=== PATIENT | female | born 1960 | race Caucasian/White ===

== ENCOUNTER 2021-06-25 11:19 | Inpatient (IN) | payer BC ==
[~2021-06-25] VITALS: Ht 154.9 cm; Wt 91.9 kg
[~2021-06-25 11:19] MED LIST: MECL-75 PO
--- NOTE | 2021-06-25 11:37 | PHYS DOC ---
Past History Past Medical History: No Pertinent History (RIK WELLER APRN) Past Surgical History: Hysterectomy, Knee Replacement (RIK WELLER APRN) Alcohol Use: Occasionally Drug Use: None (RIK WELLER APRN) General Adult EDM: Chief Complaint: SHORTNESS OF BREATH HPI: HPI: Patient is a 60-year-old female being seen in the ER for pneumonia. She states that she was at Dr. Villalpando's office just prior to ER arrival and had a chest x-ray performed and was told that she had bilateral lower lobe pneumonia. Dr. Nice contacted nursing staff and reported that he was sending her in to be admitted. Patient is reporting a cough and shortness of breath for 2 months. She has a history of COPD. She does not wear oxygen at home. Her room air oxygen saturation is 92%. She is not tachycardic. Patient denies any fevers, chest pain, sick exposures or recent Covid testing. (RIK WELLER APRN) Review of Systems: Review of Systems: 14 body systems of the review of systems have been reviewed. See HPI for pertinent positive and negative responses, otherwise all other systems are negative, nonpertinent or noncontributory (RIK WELLER APRN) Current Medications: Current Meds: Current Medications Medications (Trade) Dose Ordered Sig/Sharlene Start Time Stop Time Status Last Admin Dose Admin Azithromycin 500 mg/Sodium Chloride 250 ml @ 250 mls/hr 1X ONCE 06/25/21 11:45 06/25/21 12:44 UNV Ceftriaxone Sodium 1 gm/ Sodium Chloride 50 ml @ 100 mls/hr 1X ONCE 06/25/21 11:45 06/25/21 12:14 UNV (RIK WELLER APRN) Allergies: Allergies: Allergies Coded Allergies Type Severity Reaction Last Updated Verified acetaminophen Allergy Intermediate hives 04/13/15 No codeine Allergy Intermediate hives 04/13/15 No oxycodone Allergy Intermediate hives 04/13/15 No (RIK WELLER APRN) Physical Exam: PE: Constitutional: Well developed, well nourished, no acute distress, non-toxic appearance. [] HENT: Normocephalic, atraumatic, bilateral external ears normal, oropharynx moist, no oral exudates, nose normal. [] Eyes: PERRL, EOMI, conjunctiva normal, no discharge. [] Neck: Normal range of motion, no stridor Cardiovascular:Heart rate regular rhythm, no murmur [] Lungs & Thorax: Bilateral breath sounds clear to auscultation [] Abdomen: Bowel sounds normal, soft, no tenderness, no masses, no pulsatile masses. [] Skin: Warm, dry, no erythema, no rash. [] Back: Range of motion Extremities: No tenderness, no cyanosis, no clubbing, ROM intact, no edema. [] Neurologic: Alert and oriented X 3, normal motor function, normal sensory function, no focal deficits noted. [] Psychologic: Affect normal, judgement normal, mood normal. [] (RIK WELLER APRN) Current Patient Data: Labs: Laboratory Tests Test 06/25/21 12:00 White Blood Count 9.4 x10^3/uL Red Blood Count 3.90 x10^6/uL Hemoglobin 11.9 g/dL Hematocrit 37.0 % Mean Corpuscular Volume 95 fL Mean Corpuscular Hemoglobin 31 pg Mean Corpuscular Hemoglobin Concent 32 g/dL Red Cell Distribution Width 13.3 % Platelet Count 379 x10^3/uL Neutrophils (%) (Auto) 75 % Lymphocytes (%) (Auto) 9 % Monocytes (%) (Auto) 12 % Eosinophils (%) (Auto) 3 % Basophils (%) (Auto) 1 % Neutrophils # (Auto) 7.1 x10^3uL Lymphocytes # (Auto) 0.9 x10^3/uL Monocytes # (Auto) 1.2 x10^3/uL Eosinophils # (Auto) 0.2 x10^3/uL Basophils # (Auto) 0.1 x10^3/uL Sodium Level 139 mmol/L Potassium Level 4.4 mmol/L Chloride Level 100 mmol/L Carbon Dioxide Level 29 mmol/L Anion Gap 10 Blood Urea Nitrogen 17 mg/dL Creatinine 0.5 mg/dL Estimated GFR (Cockcroft-Gault) 125.0 BUN/Creatinine Ratio 34 Glucose Level 92 mg/dL Lactic Acid Level 1.0 mmol/L Calcium Level 8.9 mg/dL Total Bilirubin 0.2 mg/dL Aspartate Amino Transf (AST/SGOT) 16 U/L Alanine Aminotransferase (ALT/SGPT) 17 U/L Alkaline Phosphatase 121 U/L Troponin I Quantitative < 0.017 ng/mL Total Protein 6.4 g/dL Albumin 2.8 g/dL Albumin/Globulin Ratio 0.8 SARS-CoV-2 Antigen (Rapid) Negative Current Medications Medications (Trade) Dose Ordered Sig/Sharlene Route PRN Reason Start Time Stop Time Status Last Admin Dose Admin Ceftriaxone Sodium 1 gm/ Sodium Chloride 50 ml @ 100 mls/hr 1X ONCE IV 06/25/21 11:45 06/25/21 11:34 DC Azithromycin 500 mg/Sodium Chloride 250 ml @ 250 mls/hr 1X ONCE IV 06/25/21 11:45 06/25/21 11:34 DC Ceftriaxone Sodium 1 gm/ Sodium Chloride 50 ml @ 100 mls/hr 1X ONCE IV 06/25/21 13:00 06/25/21 13:29 Azithromycin 500 mg/Sodium Chloride 250 ml @ 250 mls/hr 1X ONCE IV 06/25/21 13:00 06/25/21 13:59 (RIK WELLER APRN) EKG: EKG: EKG performed by ER staff at 1137 shows sinus rhythm with a rate of 77, no STEMI read by Dr. Minor at 1146. [] (RIK WELLER APRN) Radiology/Procedures: Radiology/Procedures: []PROCEDURE: CHEST AP ONLY XR CHEST 1V CLINICAL INDICATIONS: Reason: Shortness of air cough / Spl. Instructions: / History: COMPARISON: April 13, 2015. Findings: There is a consolidative infiltrate within the left mid and lower lung zone. Right lung field is clear. No pneumothorax is seen. No pleural effusion is evident. Left axillary node dissection is apparent. The heart size, pulmonary vasculature, mediastinum and both berenice are unremarkable. IMPRESSION: Left lung consolidative infiltrate. Electronically signed by: Walter Madison MD (06/25/2021 12:14 PM) [id number] DICTATED AND SIGNED BY: WALTER MADISON MD DATE: 06/25/21 1213 CC: AMOL CHOUDHARY MD; RIK WELLER APRN ~MTH0 0 (RIK WELLER APRN) Heart Score: C/O Chest Pain: No Risk Factors: Risk Factors: DM, Current or recent (<one month) smoker, HTN, HLP, family history of CAD, obesity. Risk Scores: Score 0 - 3: 2.5% MACE over next 6 weeks - Discharge Home Score 4 - 6: 20.3% MACE over next 6 weeks - Admit for Clinical Observation Score 7 - 10: 72.7% MACE over next 6 weeks - Early Invasive Strategies (RIK WELLER APRN) Course & Med Decision Making: Course & Med Decision Making Pertinent Labs and Imaging studies reviewed. (See chart for details) [] Patient is a 60-year-old female being seen in the ER for cough and shortness of breath x2 months. Patient to be admitted by Dr. Villalpando symptoms are bilateral lower lobe pneumonia. Work-up in the ER consisted of blood work, chest x-ray. Patient be treated with antibiotics. Patient's blood work was unremarkable. She was noted to have a left lower lobe pneumonia. This will be treated with an antibiotic in the ER. Patient's vital signs are stable at this time. I spoke to Dr. Villalpando who agreed to admit the patient under his services. I discussed patient's findings with her as well as treatment plan and she is agreeable at this time. Care transferred at this time 1320. (RIK WELLER APRN) Course & Med Decision Making I was the Attending physician on the above date of service of this patient. This patient was evaluated, examined, treated, and dispositioned from the emergency department by the mid-level practitioner. I reviewed case and agreed to plan of care and need for admission as advised by outpatient primary care physician Electronically signed, Michael Minor DO (MICHAEL MINOR DO) Tyesha Disclaimer: Tyesha Disclaimer: This electronic medical record was generated, in whole or in part, using a voice recognition dictation system. (RIK WELLER APRN) Departure Departure: Impression: Primary Impression: Pneumonia Qualified Codes: J18.9 - Pneumonia, unspecified organism Disposition: ADMITTED INPATIENT Admitting Physician: Amol Choudhary (RIK WELLER APRN) Referrals: AMOL CHOUDHARY MD (PCP) Scripts Cefdinir (CEFDINIR) 300 Mg Capsule 1 CAP PO BID for infection, #10 CAP Prov: AMOL CHOUDHARY MD 06/28/21 Lactobacillus Rhamnosus Gg (CULTURELLE) 1 Each Cap.sprink 1 CAP PO BID for probiotic for 60 Days, #120 CAP Prov: AMOL CHUODHARY MD 06/28/21 RIK WELLER APRN Jun 25, 2021 11:37 MICHAEL MINOR DO Jun 30, 2021 17:51
[2021-06-25] MEDS ORDERED: AZITHROMYCIN 500 MG in IV NORMAL SALINE 250ML 250 ML IV ONE ×2 (11:45→13:00)
--- NOTE | 2021-06-25 12:17 | RAD ---
XR CHEST 1V CLINICAL INDICATIONS: Reason: Shortness of air cough / Spl. Instructions: / History: COMPARISON: April 13, 2015. Findings: There is a consolidative infiltrate within the left mid and lower lung zone. Right lung fie ld is clear. No pneumothorax is seen. No pleural effusion is evident. Left axillary node dissection i s apparent. The heart size, pulmonary vasculature, mediastinum and both berenice are unremarkable. IMPRESSION: Left lung consolidative infiltrate. Electronically signed by: Juan Carlos Madison MD (06/25/2021 12:14 PM) [id number]
--- NOTE | 2021-06-25 12:18 | EKG ---
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
[2021-06-25 12:37] LABS: BASO # 0.1 x10^3/uL (0.0-0.2); BASO % 1 % (0-3); EOS # 0.2 x10^3/uL (0.0-0.7); EOS % 3 % (0-3); HEMOGLOBIN 11.9 g/dL (12.0-15.5); LYMPH # 0.9 x10^3/uL (1.0-4.8); LYMPH % 9 % (24-48); MEAN CORPUSCULAR HEMOGLOBIN 31 pg (25-35); MEAN CORPUSCULAR HGB CONC 32 g/dL (31-37); MEAN CORPUSCULAR VOLUME 95 fL (79-100); MONO # 1.2 x10^3/uL (0.0-1.1); MONO % 12 % (0-9); NEUT # 7.1 x10^3uL (1.8-7.7); NEUT % 75 % (31-73); PLATELET COUNT 379 x10^3/uL (140-400); RED CELL DISTRIBUTION WIDTH 13.3 % (11.5-14.5); WHITE BLOOD COUNT 9.4 x10^3/uL (4.0-11.0)
[2021-06-25 12:39] LABS: CALCIUM 8.9 mg/dL (8.5-10.1); CREATININE 0.5 mg/dL (0.6-1.0); POTASSIUM 4.4 mmol/L (3.5-5.1)
[2021-06-25 12:46] LABS: ALBUMIN 2.8 g/dL (3.4-5.0); ALBUMIN/GLOBULIN RATIO 0.8 (1.0-1.7); TOTAL BILIRUBIN 0.2 mg/dL (0.2-1.0); TOTAL PROTEIN 6.4 g/dL (6.4-8.2)
[2021-06-25] MEDS ORDERED: IV NORMAL SALINE 250ML 250 ML ONE (14:06)
[2021-06-25] MEDS ORDERED: IV NORMAL SALINE 50ML 50 ML ONE (14:07)
[2021-06-25] MEDS ORDERED: AZITHROMYCIN 500 MG VIAL. IV ONE (14:07)
[2021-06-25] MEDS ORDERED: cefTRIAXone SODIUM 1 GM VIAL ONE (14:07)
[2021-06-25 23:09] VITALS: BP 121/80
--- NOTE | 2021-06-25 23:10 | NUR ---
The patient, DEANNE BIGGS, 60 y/o, F admitted by POLLY CHOUDHARY MD, was given written information regarding hospital policies, unit procedures and contact persons. Valuables were checked and vitals documented. Pt is A&Ox4 able to ambulate to toilet and express own concerns. On room air pt sats at 88 pt is on 2LNC. Pt is currently resting in bed. Will continue to monitor.
[2021-06-26] MEDS ORDERED: GABA-585 PO (04:41)
[2021-06-26] MEDS ORDERED: MECL-75 PO (04:41)
[2021-06-26] MEDS ORDERED: FLUO40CA2 PO (04:41)
[2021-06-26] MEDS ORDERED: ATOR40TA59 PO (04:41)
[2021-06-26] MEDS ORDERED: LETR2.5T2 PO (04:49)
--- NOTE | 2021-06-26 04:52 | NUR ---
Pt is in a clinical trial through . She take an unknown medication daily. Her will bring the med to the hospital. Once here it will need to be added to med rec.
[2021-06-26 05:41] VITALS: BP 130/79
[2021-06-26 06:02] LABS: BASO % 1 % (0-3); EOS # 0.3 x10^3/uL (0.0-0.7); EOS % 4 % (0-3); HEMATOCRIT 32.6 % (36.0-47.0); HEMOGLOBIN 10.8 g/dL (12.0-15.5); LYMPH # 0.9 x10^3/uL (1.0-4.8); LYMPH % 13 % (24-48); MEAN CORPUSCULAR HEMOGLOBIN 32 pg (25-35); MEAN CORPUSCULAR HGB CONC 33 g/dL (31-37); MEAN CORPUSCULAR VOLUME 95 fL (79-100); MONO % 15 % (0-9); NEUT # 4.6 x10^3uL (1.8-7.7); NEUT % 68 % (31-73); PLATELET COUNT 335 x10^3/uL (140-400); RED BLOOD COUNT 3.43 x10^6/uL (3.50-5.40); RED CELL DISTRIBUTION WIDTH 13.4 % (11.5-14.5); WHITE BLOOD COUNT 6.8 x10^3/uL (4.0-11.0)
[2021-06-26 06:23] LABS: ALBUMIN 2.3 g/dL (3.4-5.0); ALBUMIN/GLOBULIN RATIO 0.6 (1.0-1.7); CALCIUM 8.5 mg/dL (8.5-10.1); CREATININE 0.5 mg/dL (0.6-1.0); POTASSIUM 3.6 mmol/L (3.5-5.1); TOTAL BILIRUBIN 0.3 mg/dL (0.2-1.0); TOTAL PROTEIN 6.2 g/dL (6.4-8.2)
[2021-06-26] MEDS ORDERED: PIP/TAZO PER PHARMACY MC PRN (06:30)
[2021-06-26] MEDS ORDERED: levoFLOXacin PER PHARMACY 1 EACH. MC PRN (06:30)
[2021-06-26] MEDS: IPRATRPIUM/ALBUTEROL 0.5/2.5MG 3 ML NEBU. NEB SCH ×4 (08:00→22:10)
[2021-06-26] MEDS: ATORVASTATIN CALCIUM 20 MG TABLET PO SCH (08:45)
[2021-06-26] MEDS: MECLIZINE 12.5 MG TABLET. PO SCH (08:45)
[2021-06-26] MEDS: GABAPENTIN 100 MG CAPSULE. PO SCH (08:45)
[2021-06-26] MEDS: NON FORMULARY ITEM (Letrozole (Femara) 1 TAB) PO SCH (09:00)
[2021-06-26] MEDS ORDERED: FLU VACC QUAD 21-22 (6MOS+) PF 0.5 ML SYRINGE. VAX IM ONE (09:00)
--- NOTE | 2021-06-26 09:38 | NUR ---
SPOKE WITH PHARMACY ABOUT GETTING THE FLU SHOT WHILE ON HER HORMONE REPLACEMENT CHEMO. PHARMACY SAID IT WOULD BE OK TO GIVE. PT ALSO STATES THAT HER ONCOLOGY DOCTOR WANTS HER TO GET HER FLU SHOT.
[2021-06-26 10:30] VITALS: BP 115/77
[2021-06-26] MEDS: PIPERACILLIN/TAZOBACTAM 3.375 GM in IV NORMAL SALINE 50ML 50 ML IV SCH ×3 (12:03→23:57)
--- NOTE | 2021-06-26 14:01 | PN ---
SUBJECTIVE: A 60-year-old female in with a left lower lobe pneumonia that has been attempt to be treated as an outpatient for 3 weeks by other physicians and has progressively gotten worse. She has a history of breast cancer and is on medications for her breast cancer. The patient was sent through the Emergency Room per protocol. Her oxygen saturation did drop down into the upper 80s and the patient has been having chilling during the day. The patient's C-reactive protein is 103 and severe protein malnutrition. COVID negative. OBJECTIVE: VITAL SIGNS: The patient's vital signs this morning blood pressure 122/80, respiratory rate 20, pulse 70, afebrile and 95 on room air. GENERAL: The patient is alert and oriented. LUNGS: Diminished primarily in the left lower lung base. Marked decrease in breath sounds. CARDIOVASCULAR: Regular sinus rhythm. ABDOMEN: Soft, nontender. NEUROLOGIC: Intact. IMPRESSION: Left lower lobe community-acquired pneumonia, on immunosuppressive therapy for her breast cancer, severe protein malnutrition. PLAN: The patient continued to be monitored carefully, make further evaluation on her with IV antibiotic therapy and get CT scan of the chest. CARLENE DR: Maya TID: [id number]
--- NOTE | 2021-06-26 14:59 | RAD ---
EXAM: CT Chest without IV contrast CLINICAL HISTORY: Reason: pneumonia / Spl. Instructions: LLL mass brteast cancer / History: COMPARISON: None. TECHNIQUE: CT of the chest without intravenous contrast. Axial, coronal and sagittal reformatted imag es were generated. ---PQRS compliance statement - One or more of the following individualized dose reduction techniques were utilized for this study: 1. Automated exposure control 2. Adjustment of the mA and/or kV according to patient size 3. Use of iterative reconstruction technique--- FINDINGS: Lack of intravenous contrast limits evaluation of solid organs, vasculature, and lymph nodes. Chest: Changes of bilateral mastectomy and bilateral axillary surgical clips are seen. Heart is not enlarged . Coronary calcifications are seen. No pericardial effusion. No pleural effusion or pneumothorax. Wit hin the constraints of this noncontrast examination, no definite mediastinal or hilar lymphadenopathy . No axillary lymphadenopathy. Diffuse parenchymal airspace opacities in the left lower lobe and lingula likely consolidative proces s such as pneumonia with regions of air bronchograms. Visualized Upper abdomen: Unremarkable Bones: No aggressive osseous lesion. IMPRESSION: Diffuse parenchymal opacities in the left lung likely consolidative process such as pneumonia. Imagin g follow-up to resolution is recommended as underlying mass or metastatic focus would be obscured by the parenchymal opacities. Electronically signed by: Jose Thompson MD (06/26/2021 2:56 PM) NAKIA
[2021-06-26 15:10] VITALS: BP 101/67
--- NOTE | 2021-06-26 18:07 | NUR ---
PT STATED THAT SHE COULD GO WITHOUT HER CHEMO MEDS AND DID NOT WANT HER TO BRING THEM UP. PT HAD A GOOD DAY AND HAD A DIFFERENT IV PLACED. PT VERY PLEASANT AND DID NOT COMPLAIN OF PAIN.
[2021-06-26 19:24] VITALS: BP 96/68
[2021-06-26 23:01] VITALS: BP 102/69
[2021-06-27] MEDS: IPRATRPIUM/ALBUTEROL 0.5/2.5MG 3 ML NEBU. NEB SCH ×4 (05:41→21:20)
[2021-06-27] MEDS: PIPERACILLIN/TAZOBACTAM 3.375 GM in IV NORMAL SALINE 50ML 50 ML IV SCH ×3 (06:07→17:29)
[2021-06-27 06:37] VITALS: BP 105/73
[2021-06-27] MEDS: MECLIZINE 12.5 MG TABLET. PO SCH (07:54)
[2021-06-27] MEDS: GABAPENTIN 100 MG CAPSULE. PO SCH (07:54)
[2021-06-27] MEDS: ATORVASTATIN CALCIUM 20 MG TABLET PO SCH (07:54)
[2021-06-27] MEDS: NON FORMULARY ITEM (Letrozole (Femara) 1 TAB) PO SCH (08:46)
[2021-06-27 12:06] VITALS: BP 130/75
[2021-06-27] MEDS ORDERED: CALCIUM CARBONATE 500 MG TAB.CHEW PO PRN (12:15)
[2021-06-27 15:25] VITALS: BP 116/80
--- NOTE | 2021-06-27 16:19 | NUR ---
PT WAS EXPECTING TO GO HOME TODAY BUT WANTS TO KEEP HER UNTIL TOMORROW. PT HAS TUMS AND DULCOLEX ORDERED PRN. PT C/O UPSET STOMACH, BUT DID NOT NEED ANYTHING FOR IT. PT STATED SHE COULD HAVE HER BRING HER RAPHAEL HOSE IF SHE WANTS THEM, BUT DID NOT WANT TO WEAR OURS. PT HAS A FOLLOW UP APPT WITH HER ONCOLOGY DR. ON FRIDAY.
[2021-06-27] MEDS: BISACODYL TAB 5 MG TABLET.DR. PO PRN (18:28)
[2021-06-27 20:34] VITALS: BP 125/81
[2021-06-28] MEDS: PIPERACILLIN/TAZOBACTAM 3.375 GM in IV NORMAL SALINE 50ML 50 ML IV SCH ×3 (00:41→12:00)
--- NOTE | 2021-06-28 00:49 | PN ---
SUBJECTIVE: A 60-year-old female with sepsis, non-COVID pneumonia, community acquired. The patient is resting comfortably, although still having some trouble breathing and coarse breath sounds in the left lower lobe. OBJECTIVE: VITAL SIGNS: Blood pressure 120/80, respiratory rate 18, pulse 93. Presently, afebrile, 94% on room air. The patient otherwise seems to be doing relatively well. LUNGS: Diminished, primarily in the left lower lobe. There is quite a bit of crackles noted in the bases. The patient's CT scan confirmed the consolidation, but was concerned about the possibility of a metastatic focus behind this consolidation as she has a history of breast cancer. CARDIOVASCULAR: Regular sinus rhythm. ABDOMEN: Soft, nontender. GENERAL: The patient is alert and oriented, in good spirits. IMPRESSION: Left lower lobe community-acquired pneumonia, on immunosuppressive therapy for breast cancer, severe protein malnutrition. PLAN: Continue with present drug regimen and will continue with breathing treatments, antibiotics and hopefully ready for discharge here soon. TONY DR: Maya TID: [id number]
[2021-06-28 05:53] VITALS: BP 108/74
[2021-06-28] MEDS: IPRATRPIUM/ALBUTEROL 0.5/2.5MG 3 ML NEBU. NEB SCH ×2 (06:08→10:05)
[2021-06-28] MEDS: NON FORMULARY ITEM (Letrozole (Femara) 1 TAB) PO SCH (07:46)
[2021-06-28] MEDS: MECLIZINE 12.5 MG TABLET. PO SCH (08:33)
[2021-06-28] MEDS: BISACODYL TAB 5 MG TABLET.DR. PO PRN (08:33)
[2021-06-28] MEDS: GABAPENTIN 100 MG CAPSULE. PO SCH (08:33)
[2021-06-28] MEDS: ATORVASTATIN CALCIUM 20 MG TABLET PO SCH (08:33)
[2021-06-28] MEDS ORDERED: LACTOBACILLUS RHAMNOSUS GG 1 CAPSULE. PO SCH (09:00)
[2021-06-28] MEDS ORDERED: CEFD300C PO (10:03)
[2021-06-28] MEDS ORDERED: LACT1CAP19 PO (10:03)
[2021-06-28 11:15] VITALS: BP 114/78
--- NOTE | 2021-06-28 13:23 | NUR ---
DISCHARGE Pt discharged by Dr. Sommers today. Pt verbalized understanding of all discharge paperwork and prescriptions that were sent to [facility]. All questions addressed. Pt to follow up with Dr. Lopez in 7-[address] scan in one month. Pt ambulated off unit with VSS, GCS 15. Escorted home by . CC, RN
--- NOTE | 2021-07-06 01:10 | DS ---
DATE OF DISCHARGE: 06/28/2021 HOSPITAL COURSE: This is a 60-year-old female with left lower lobe pneumonia that has been attempted to be treated as an outpatient for the last 3 weeks with the various other physicians. However, the patient became increasingly more dyspneic and was having more trouble with breathing with increased respiratory rate and the like. Her oxygen saturation dropped down into the 80s and required oxygen. As a result of this, the patient was admitted to the hospital for further evaluation and treatment. The patient had a left lower lobe pneumonia. She was given IV antibiotic therapy as well as aggressive pulmonary toilet. The patient was going to be discharged home for followup and make further evaluation on her as an outpatient. LABORATORY DATA: The patient's labs, hemoglobin 10.8 and 32. Otherwise, normal differential. Chemistries: 143.6, BUN and creatinine 14 and 0.5, albumin 2.3. C-reactive protein of 103. SARS was negative. IMPRESSION: Community-acquired pneumonia, acute respiratory failure. The patient will be discharged home. Follow up as an outpatient. See ADRIANNE. ISRRAEL/MEL/LEONOR DR: ISRRAEL/paolo TID: [id number]
== END 2021-06-28 13:15 | disposition home or self-care (01) | DRG 871 ==
LOC: ER 11:19 → 1 SOUTH 20:59 → OBSVTOIN 23:49
PROVIDERS: ADMIT Family Medicine; ATTEND Family Medicine
DX: A41.9 Sepsis, unspecified organism (principal); E43 Unspecified severe protein-calorie malnutrition; J18.9 Pneumonia, unspecified organism; J44.0 Chronic obstructive pulmonary disease with (acute) lower respiratory infection; Z20.822 Contact with and (suspected) exposure to COVID-19; Z85.3 Personal history of malignant neoplasm of breast; Z90.710 Acquired absence of both cervix and uterus; Z96.659 Presence of unspecified artificial knee joint; Z88.8 Allergy status to other drugs, medicaments and biological substances; Z68.38 Body mass index [BMI] 38.0-38.9, adult
CPT/HCPCS: 36415; 71045; 71250; 80053; 83605; 84484; 85025; 86140; 87040; 87426; 90471; 90686; 93005; 94640; G0378; G0379; J0456; J0696; J1956; J2543; J7050; U0003; 99285-25

== ENCOUNTER → 2021-08-02 | Outpatient (CLI) | payer BC ==
[~2021-08-02] MED LIST changes: +ATOR40TA59 PO; +CEFD300C PO; +FLUO40CA2 PO; +GABA-585 PO; +LACT1CAP19 PO; +LETR2.5T2 PO
--- NOTE | 2021-08-02 10:23 | RAD ---
CT of the chest without contrast Indication: [History of breast cancer. Shortness of breath.] Comparison study: [Chest CT June 26, 2021] Technique: Multidetector CT of the chest was performed without contrast Findings: Heart size remains normal. No pericardial effusion is identified. Coronary calcification is seen. Chappell ited noncontrast enhanced evaluation the mediastinum demonstrates no definitive pathologically enlarg ed mediastinal lymph nodes. Scattered small nodes are present. No pneumothorax is seen. In the interim since comparison exam there is significant improvement in left upper and lower lobe co nsolidations, while there is interval development of significant right lower lobe groundglass infiltr ate and more dense consolidation some of which has air bronchograms. Left-sided volume loss persists. Limited visualization of the upper abdomen demonstrates no acute abnormality. No acute osseous change s are identified. IMPRESSION: Interval improvement in groundglass and more dense consolidations within the left upper a nd lower lobes. Interval development of significant groundglass and more dense consolidation in the r ight lower lobe with areas of air bronchograms Findings may reflect a persistent or recurrent atypical pneumonia. Particularly on the left, a compon ent post radiation change is possible (correlate with treatment history for breast cancer). Metastati c disease/lymphovascular invasion cannot excluded. Correlate with clinical findings. Continued short- term CT surveillance recommended. Consider bronchoscopic evaluation and biopsy as indicated. CT DOSING PQRS STATEMENT: One or more of the following individualized dose reduction techniques were utilized for this examinat ion: 1. Automated exposure control 2. Adjustment of the mA and/or kV according to patient size 3. Use of iterative reconstruction technique Electronically signed by: Micky Navarrete MD (08/02/2021 10:20 AM) [id number]
== END ==
LOC: CT 09:09
PROVIDERS: ATTEND Family Medicine
DX: R91.8 Other nonspecific abnormal finding of lung field (principal); I25.10 Atherosclerotic heart disease of native coronary artery without angina pectoris
CPT/HCPCS: 71250

== ENCOUNTER → 2021-08-06 | Outpatient (CLI) | payer BC ==
[~2021-08-06] MED LIST changes: +IOHEXOL 240 MG/ML 50ML VIAL. ONE; +IOHEXOL 300 MG/ML 75 ML VIAL. IV ONE
[2021-08-06 12:57] LABS: BASO % 1 % (0-3); EOS # 0.3 x10^3/uL (0.0-0.7); EOS % 4 % (0-3); HEMATOCRIT 33.5 % (36.0-47.0); HEMOGLOBIN 10.6 g/dL (12.0-15.5); LYMPH # 0.8 x10^3/uL (1.0-4.8); LYMPH % 10 % (24-48); MEAN CORPUSCULAR HEMOGLOBIN 29 pg (25-35); MEAN CORPUSCULAR HGB CONC 32 g/dL (31-37); MEAN CORPUSCULAR VOLUME 92 fL (79-100); MONO % 13 % (0-9); NEUT # 5.6 x10^3uL (1.8-7.7); NEUT % 72 % (31-73); PLATELET COUNT 398 x10^3/uL (140-400); RED BLOOD COUNT 3.65 x10^6/uL (3.50-5.40); RED CELL DISTRIBUTION WIDTH 14.4 % (11.5-14.5); WHITE BLOOD COUNT 7.8 x10^3/uL (4.0-11.0)
[2021-08-06 13:13] LABS: ALBUMIN 2.7 g/dL (3.4-5.0); ALBUMIN/GLOBULIN RATIO 0.6 (1.0-1.7); CREATININE 0.6 mg/dL (0.6-1.0); TOTAL BILIRUBIN 0.2 mg/dL (0.2-1.0); TOTAL PROTEIN 7.1 g/dL (6.4-8.2)
--- NOTE | 2021-08-06 13:22 | RAD ---
EXAM: CT Abdomen and Pelvis with IV contrast CLINICAL HISTORY: Right upper quadrant pain, nausea, vomiting. COMPARISON: none TECHNIQUE: Helical CT of the abdomen and pelvis was performed following the administration of intrave nous contrast. Axial, coronal and sagittal reformatted images were generated. PQRS compliance statement - One or more of the following individualized dose reduction techniques wer e utilized for this study: 1. Automated exposure control 2. Adjustment of the mA and/or kV according to patient size 3. Use of iterative reconstruction technique FINDINGS: Of note, minimal intravenous contrast is seen possibly related to small contrast volume or local extr avasation at the injection site including correlated with clinical examination. Lower Chest: Airspace opacities right lower lobe, and to a lesser extent left lower lobe likely consolidative proc ess such as pneumonia. Abdomen and Pelvis: Liver is mildly enlarged. Spleen, adrenal glands, pancreas are unremarkable. Gallbladder is normal in appearance. No biliary ductal dilatation. No focal renal lesion. No left renal lesion or renal calcu benjamin. No left hydroureter. 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 Bladder is unremarkable. Czgo-st-ximxdaum colonic stool content is seen. Appendix is normal. No small or large bowel dilatatio n. No bowel obstruction. Colonic diverticula are seen. No evidence for acute diverticulitis. Fat-cont aining left inguinal hernia. Small fat-containing right inguinal hernia. Dense aortic calcifications are seen. Small fat-containing periumbilical hernia is noted. No abdominal or pelvic ascites. No abdominal or pelvic lymphadenopathy. Bones: Sclerotic focus left femoral neck. Degenerative changes of the lower lumbar spine. No aggressive osse ous lesion is seen. IMPRESSION: 1. Airspace opacities right lower lobe, and to a lesser extent left lower lobe likely consolidative process such as pneumonia. 2. Of note, minimal intravenous contrast is seen possibly related to small contrast volume or local extravasation at the injection site and can be correlated with clinical examination. 3. Fat-containing right inguinal hernia and small fat-containing periumbilical hernia. Electronically signed by: Jose Thompson MD (08/06/2021 1:20 PM) RONICARMEN
[2021-08-07 18:35] LABS: FREE T4 1.06 ng/dL (0.76-1.46); THYROID STIM HORMONE (TSH) 1.91 uIU/mL (0.358-3.740)
== END ==
LOC: CT 11:38
PROVIDERS: ATTEND Family Medicine
DX: C50.912 Malignant neoplasm of unspecified site of left female breast (principal); R91.8 Other nonspecific abnormal finding of lung field; K40.90 Unilateral inguinal hernia, without obstruction or gangrene, not specified as recurrent; K42.9 Umbilical hernia without obstruction or gangrene; R16.0 Hepatomegaly, not elsewhere classified; I70.0 Atherosclerosis of aorta; I10 Essential (primary) hypertension; K21.9 Gastro-esophageal reflux disease without esophagitis; R11.2 Nausea with vomiting, unspecified; R06.09 Other forms of dyspnea; R06.02 Shortness of breath; M47.816 Spondylosis without myelopathy or radiculopathy, lumbar region
CPT/HCPCS: 36415; 74177; 80053; 83690; 84439; 84443; 85025; Q9967